=== PATIENT | male | born 2000 | race Caucasian/White ===

== ENCOUNTER 2021-06-14 18:06 | Emergency (ER) | payer MEDICAID ==
[~2021-06-14] VITALS: Ht 185.4 cm; Wt 140.6 kg
[2021-06-14 18:21] VITALS: BP 137/84
--- NOTE | 2021-06-14 18:30 | NUR ---
PT AMB TO BED 4.
--- NOTE | 2021-06-14 18:41 | NUR ---
21 Y/O MALE C/O EARS PAIN 09/24 DESCRIBES THROBBING X 2DAYS. PT STATES SORE THROAT, SUBJECTIVE FEVER, HEADACHE X TODAY. DENIES FEVER/CHILLS. DENIES N/V/D. PMH: OBESITY NKA
[2021-06-14] MEDS ORDERED: IBUP-2213 PO (19:00)
[2021-06-14] MEDS ORDERED: PSEU120T22 PO (19:00)
[2021-06-14] MEDS ORDERED: PRED20TA5 PO (19:00)
--- NOTE | 2021-06-14 19:01 | NUR ---
21 Y/O MALE C/O COUGH 1 WEEK, BILATERAL EAR PAIN X 2 DAYS. PATIENT HAS SORE THROAT, SUBJECTIVE FEVER AND HEADACHE X TODAY. PATIENT STATES HIS NEPHEWS ARE SICK. MEDICAL HISTORY: OBESITY NKDA
--- NOTE | 2021-06-14 19:08 | NUR ---
Patient discharged with v/s stable. Written and verbal after care instructions given. Patient alert, oriented and verbalized understanding of instructions. Ambulatory with steady gait. All questions addressed prior to discharge. ID band removed. Patient advised to follow up with PMD. Rx of IBUPROFEN, PREDNISONE and SUDAFED 12 HOUR given. Opportunity to ask questions provided and answered.
--- NOTE | 2021-06-14 19:16 | NUR ---
The patient's care was reviewed and supervised by Sugey Gomez RN.
== END 2021-06-14 19:08 | disposition home or self-care (01) ==
LOC: MED 18:06
DX: H92.03 Otalgia, bilateral (principal); J06.9 Acute upper respiratory infection, unspecified; F17.200 Nicotine dependence, unspecified, uncomplicated
CPT/HCPCS: 99283

== ENCOUNTER 2021-06-17 16:41 | Emergency (ER) | payer MEDICAID ==
[~2021-06-17] VITALS: Ht 185.4 cm; Wt 143.6 kg
[~2021-06-17 16:41] MED LIST: IBUP-2213 PO; PRED20TA5 PO; PSEU120T22 PO
[2021-06-17 16:48] VITALS: BP 142/87
[2021-06-17] MEDS ORDERED: IBUP-2213 PO (17:30)
[2021-06-17] MEDS ORDERED: AMOX1TAB8 PO (17:30)
[2021-06-17] MEDS ORDERED: cefTRIAXone 1,000 MG in LIDOCAINE MPF 1% 2.1 ML IM ONE (17:30)
[2021-06-17] MEDS ORDERED: KETOROLAC 30 MG/ML VIAL IM ONE (17:30)
[2021-06-17] MEDS ORDERED: LIDOCAINE MPF 1% 5 ML ONE (17:37)
[2021-06-17] MEDS ORDERED: cefTRIAXone 1,000 MG VIAL ONE (17:37)
--- NOTE | 2021-06-17 18:07 | NUR ---
Patient discharged with v/s stable. Written and verbal after care instructions FOR [employer] given and explained. Patient alert, oriented and verbalized understanding of instructions. Ambulatory with steady gait. All questions addressed prior to discharge. ID band removed. Patient advised to follow up with PMD. Rx of AMOXICILLIN AND IBUPROFEN given. Opportunity to ask questions provided and answered.
--- NOTE | 2021-06-17 18:13 | NUR ---
The patient's care was reviewed and supervised by Sugey Gomez RN.
== END 2021-06-17 18:07 | disposition home or self-care (01) ==
LOC: MED 16:41
DX: H66.93 Otitis media, unspecified, bilateral (principal); R03.0 Elevated blood-pressure reading, without diagnosis of hypertension; Z79.1 Long term (current) use of non-steroidal anti-inflammatories (NSAID); Z79.2 Long term (current) use of antibiotics; Z79.899 Other long term (current) drug therapy
CPT/HCPCS: 96372; 99284; J0696; J1885; J2001